=== PATIENT | male | born 1995 | race Caucasian/White ===

== ENCOUNTER 2022-02-23 13:22 | Emergency (ER) | payer OTHER, BC ==
[2022-02-23] MEDS: Lidocaine 2% with EPINEPHrine 1:100,000 20 ML MDV INJECT ONE (13:55)
[2022-02-23] MEDS: Diphtheria/Tetanus Toxoids,Adult (Td) 0.5 ML SDV IM ONE (14:34)
[2022-02-23] MEDS: Bacitracin Oint 1 GM U/D Packet TOP ONE (14:35)
== END 2022-02-23 15:00 | disposition home or self-care (01) ==
LOC: LL.ED 13:22
DX: S61.412A Laceration without foreign body of left hand, initial encounter (principal); Z23 Encounter for immunization; W26.0XXA Contact with knife, initial encounter
CPT/HCPCS: 12002; 90471; 90714; 99282-25; 99283